=== PATIENT | male | born 1985 | race Hispanic/Latino ===

== ENCOUNTER 2017-05-20 11:25 | Emergency (ER) | payer BC ==
[2017-05-20 11:41] VITALS: BP 150/86
--- NOTE | 2017-05-20 11:59 | EDM.PDOC ---
ED HPI GENERAL MEDICAL PROBLEM - General Chief Complaint: Abdominal Pain Stated Complaint: ABDOMIN PAIN Time Seen by Provider: 05/20/17 11:50 Source of Information: Reports: Patient History Limitations: Reports: No Limitations - History of Present Illness INITIAL COMMENTS - FREE TEXT/NARRATIVE: HISTORY AND PHYSICAL: History of present illness: [Comes to the emergency room complaining of upper abdominal discomfort. Onset was 8 PM last evening with pain beginning after using his inversion table. He recently purchased an inversion table due to chronic low back pain. He has used for the last 3 nights. He questions if he may have over done it last night, straining muscles in his upper abdomen. Rates pain as 7/10 at 8 PM last night, gradually worsened to 10/10 during the night, and he experienced difficulty sleeping due to pain. Currently pain is 7 out of 10 and remains constant. Does not seem to be affected by movement. He has not taken any medications for his symptoms. He denies fever and chills. No recent illness or infections. No nausea or vomiting. No difficulty urinating. No diarrhea. Last bowel movement was 6 PM last evening. He usually has one at 4 AM which he has not had yet today. Feels that his lower abdomen is somewhat full. No chest pain shortness of breath or difficulty breathing. He has no other complaints or concerns at this time. Denies any previous hospitalizations and surgeries. Is not on any regular medications nor does he have medication allergies.] Review of systems: As per history of present illness and below otherwise all systems reviewed and negative. Past medical history: As per history of present illness and as reviewed below otherwise noncontributory. Surgical history: As per history of present illness and as reviewed below otherwise noncontributory. Social history: No reported history of drug or alcohol abuse. Family history: As per history of present illness and as reviewed below otherwise noncontributory. Physical exam: HEENT: Atraumatic, normocephalic. Negative for conjunctival pallor or scleral icterus. mucous membranes moist, throat clear. neck supple, nontender. Lungs: Clear to auscultation, breath sounds equal bilaterally. Heart: S1S2, regular, no wheezing crackles or rales. Abdomen: Bowel sounds are normoactive throughout. Abdomen is soft and nondistended. He is tender with palpation over his epigastric area but there is no guarding masses or rebound appreciated. Negative for costovertebral tenderness. Back: Normal in appearance. Mild L low back tenderness w/ palpation. Pelvis: Stable nontender. Genitourinary: Deferred. Rectal: Deferred. Extremities: Atraumatic, negative for cords or calf pain. Full ROM and ambulates w/o difficulty. Neurovascular unremarkable. Neuro: Awake, alert, oriented. Diagnostics: [CBC, CMP, urinalysis, amylase, lipase] Impression: [abdominal pain] Plan: [Discussed w/ patient that his lab results are WNL, and no cause of his abdominal pain is identified. Recommend OTC analgesics as needed for pain. Encouraged him to take a break from inversion table until he's feeling improved. Establish w/ a local PCP and continue to monitor symptoms. Return to ER as needed as discussed. Patient is in agreement w/ today's plan.] Definitive disposition and diagnosis as appropriate pending reevaluation and review of above. right and left upper abd Pain Score (Numeric/FACES): 7 - Related Data Allergies Allergy/AdvReac Type Severity Reaction Status Date / Time No Known Allergies Allergy Verified 05/20/17 11:38 Home Meds: Home Meds . [No Known Home Meds] 12/12/14 [History] Past Medical History - Past Health History Medical/Surgical History: Denies Medical/Surgical History Social & Family History - Family History Family Medical History: Noncontributory - Tobacco Use Smoking Status *Q: Never Smoker Second Hand Smoke Exposure: No - Caffeine Use Caffeine Use: Reports: Coffee - Recreational Drug Use Recreational Drug Use: No ED ROS GENERAL - Review of Systems Review Of Systems: ROS reveals no pertinent complaints other than HPI. ED EXAM, GI/ABD - Physical Exam Exam: See Below Course - Vital Signs Last Recorded V/S: Last Vital Signs Temp 96.6 F 05/20/17 11:38 Pulse 132 H 05/20/17 11:38 Resp 18 05/20/17 11:38 BP 150/86 H 05/20/17 11:38 Pulse Ox 95 05/20/17 11:38 - Orders/Labs/Meds Labs: Laboratory Tests 05/20/17 05/20/17 05/20/17 Range/Units 12:05 12:05 12:40 WBC 10.11 (4.0-11.0) K/uL RBC 5.09 (4.50-5.90) M/uL Hgb 15.7 (13.0-17.0) g/dL Hct 46.3 (38.0-50.0) % MCV 91.0 (80.0-98.0) fL MCH 30.8 (27.0-32.0) pg MCHC 33.9 (31.0-37.0) g/dL RDW Std Deviation 42.1 (28.0-62.0) fl RDW Coeff of Josh 13 (11.0-15.0) % Plt Count 258 (150-400) K/uL MPV 10.40 (7.40-12.00) fL Neut % (Auto) 77.9 (48.0-80.0) % Lymph % (Auto) 14.1 L (16.0-40.0) % [place] % (Auto) 6.9 (0.0-15.0) % Eos % (Auto) 0.9 (0.0-7.0) % Baso % (Auto) 0.2 (0.0-1.5) % Neut # (Auto) 7.9 H (1.4-5.7) K/uL Lymph # (Auto) 1.4 (0.6-2.4) K/uL [place] # (Auto) 0.7 (0.0-0.8) K/uL Eos # (Auto) 0.1 (0.0-0.7) K/uL Baso # (Auto) 0.0 (0.0-0.1) K/uL Nucleated RBC % 0.0 /100WBC Nucleated RBCs # 0 K/uL Sodium 138 (136-146) mmol/L Potassium 3.7 (3.5-5.1) mmol/L Chloride 103 (98-110) mmol/L Carbon Dioxide 25 (21-31) mmol/L BUN 13 (6.0-23.0) mg/dL Creatinine 1.0 (0.6-1.5) mg/dL Est Cr Clr Drug Dosing 123.30 mL/min Estimated GFR (MDRD) > 60.0 ml/min Glucose 94 (60-110) mg/dL Calcium 9.8 (8.8-10.8) mg/dL Total Bilirubin 0.8 (0.1-1.5) mg/dL AST 26 (5-40) IU/L ALT 31 (8-54) IU/L Alkaline Phosphatase 75 (40-150) Total Protein 8.1 H (6.0-8.0) g/dL Albumin 4.4 (3.5-5.0) g/dL Globulin 3.7 H (2.0-3.5) g/dL Albumin/Globulin Ratio 1.2 L (1.3-2.8) Amylase 60 (10-90) U/L Lipase 29 (7-80) U/L Urine Color YELLOW Urine Appearance CLEAR Urine pH 6.0 (5.0-8.0) Ur Specific [place] 1.025 (1.001-1.035) Urine Protein TRACE (NEGATIVE) mg/dL Urine Glucose (UA) NEGATIVE (NEGATIVE) mg/dL Urine Ketones NEGATIVE (NEGATIVE) mg/dL Urine Occult Blood NEGATIVE (NEGATIVE) Urine Nitrite NEGATIVE (NEGATIVE) Urine Bilirubin SMALL H (NEGATIVE) Urine Ictotest NEGATIVE Urine Urobilinogen 0.2 (<2.0) EU/dL Ur Leukocyte Esterase NEGATIVE (NEGATIVE) Urine RBC 0-2 (0-2/HPF) Urine WBC 0-2 (0-5/HPF) Ur Epithelial Cells RARE (NONE-FEW) Urine Bacteria RARE (NEGATIVE) Urine Mucus MODERATE (NONE-MOD) Departure - Departure Time of Disposition: 13:30 Disposition: Home, Self-Care 01 Condition: Good Clinical Impression: Pain, abdominal - Discharge Information Instructions: Abdominal Pain, Adult, [id number] Referrals: PCP,None [Primary Care Provider] - Forms: ED Department Discharge Additional Instructions: The following information is given to patients seen in the emergency department who are being discharged to home. This information is to outline your options for follow-up care. We provide all patients seen in our emergency department with a follow-up referral. The need for follow-up, as well as the timing and circumstances, are variable depending upon the specifics of your emergency department visit. If you don't have a primary care physician on staff, we will provide you with a referral. We always advise you to contact your personal physician following an emergency department visit to inform them of the circumstance of the visit and for follow-up with them and/or the need for any referrals to a consulting specialist. The emergency department will also refer you to a specialist when appropriate. This referral assures that you have the opportunity for follow-up care with a specialist. All of these measure are taken in an effort to provide you with optimal care, which includes your follow-up. Under all circumstances we always encourage you to contact your private physician who remains a resource for coordinating your care. When calling for follow-up care, please make the office aware that this follow-up is from your recent emergency room visit. If for any reason you are refused follow-up, please contact the [facility] emergency department at and asked to speak to the emergency department charge nurse. [facility] [address] [place] [id number] Establish care with a local primary care provider at the clinic listed above, follow-up there in 3-4 days. May take Prilosec 1 tab 1-2 times per day as needed for discomfort. No inversion table until feeling improved. Return to ER as needed as discussed.
[2017-05-20 12:36] LABS: CHLORIDE,CL 103 mmol/L (98-110); SODIUM,NA 138 mmol/L (136-146)
== END 2017-05-20 13:38 | disposition home or self-care (01) ==
LOC: MW.ED 11:25
DX: R10.11 Right upper quadrant pain (principal); R10.12 Left upper quadrant pain
CPT/HCPCS: 36415; 80053; 81001; 82150; 83690; 85025; 99282; 99283

== ENCOUNTER 2022-10-06 07:29 | Day surgery (SDC) | payer BC ==
[2022-10-06] MEDS ORDERED: Lactated Ringers 1,000 ML IV SCH (07:30)
[2022-10-06] MEDS ORDERED: Bupivacaine 25%/EPINEPHrine/PF 30 ML ONE (07:46)
[2022-10-06] MEDS ORDERED: Albuterol 0.083% 2.5 MG/3 ML Neb Soln NEB PRN (08:22)
[2022-10-06] MEDS ORDERED: Metoclopramide 10 MG/2 ML SDV IVPUSH PRN (08:22)
[2022-10-06] MEDS ORDERED: HYDROmorphone 1 MG/ML Syringe IVPUSH PRN (08:22)
[2022-10-06] MEDS ORDERED: Morphine 2 MG/ML SYRINGE IVPUSH PRN (08:22)
[2022-10-06] MEDS ORDERED: droPERidol 5 MG/2 ML SDV IVPUSH PRN (08:22)
[2022-10-06] MEDS ORDERED: fentaNYL 50 MCG/ML SDV IVPUSH PRN (08:22)
[2022-10-06] MEDS ORDERED: Naloxone 0.4 MG/ML SDV IVPUSH PRN (08:22)
[2022-10-06] MEDS ORDERED: Ondansetron 4 MG/2 ML SDV IVPUSH PRN (08:22)
[2022-10-06] MEDS ORDERED: Propofol 200 MG/20 ML SDV ONE (08:31)
[2022-10-06] MEDS ORDERED: ceFAZolin 2 GM in Sodium Chloride 0.9% 50 ML IV ONE (08:53)
[2022-10-06] MEDS ORDERED: fentaNYL 100 MCG/2 ML SDV ONE ×2 (08:56→09:20)
[2022-10-06] MEDS ORDERED: Ketorolac 30 MG/ML SDV ONE (09:46)
[2022-10-06] MEDS ORDERED: Ondansetron 4 MG/2 ML SDV ONE (09:46)
[2022-10-06] MEDS ORDERED: Dexamethasone 4 MG/ML 5 ML MDV ONE (09:46)
[2022-10-06] MEDS ORDERED: ceFAZolin 1 GM Vial ONE (09:47)
[2022-10-06] MEDS ORDERED: ceFAZolin 2 GM Vial ONE (09:47)
[2022-10-06 10:30] VITALS: BP 137/89; PULSE 65
== END 2022-10-06 10:45 | disposition home or self-care (01) ==
LOC: MW.SDS 07:29
PROVIDERS: ATTEND Orthopaedic Surgery
DX: S83.281A Other tear of lateral meniscus, current injury, right knee, initial encounter (principal); S83.241A Other tear of medial meniscus, current injury, right knee, initial encounter; S93.401A Sprain of unspecified ligament of right ankle, initial encounter; S83.91XA Sprain of unspecified site of right knee, initial encounter; R50.9 Fever, unspecified
CPT/HCPCS: 29880; J0131; J0690; J1100; J1885; J2405; J2704; J3010; J7120; 01320; J3490